=== PATIENT | male | born 1980 ===

== ENCOUNTER 2016-06-04 12:09 | Emergency (ER) | payer SELFPAY ==
[2016-06-04 15:54] VITALS: BP 145/102
--- NOTE | 2016-06-04 16:10 | UC ---
Throat Pain/Nasal Matteo HPI - HPI Summary HPI Summary: patient has had sinus issues for the last week. he has developed ear pain and neck pressure last night. - History of Current Complaint Chief Complaint: UCGeneralIllness Stated Complaint: SORE THROAT, EAR PAIN Time Seen by Provider: 06/04/16 15:45 Hx Obtained From: Patient Onset/Duration: Sudden Onset, Lasting Days Severity: Moderate Pain Intensity: 5 Pain Scale Used: 0-10 Numeric Cough: Productive Associated Signs & Symptoms: Positive: Dysphagia, Sinus Discomfort, Nasal Discharge, Fever - Epiglottits Risk Factors Epiglottis Risk Factors: Negative - Allergies/Home Medications Allergies/Adverse Reactions: Allergies Allergy/AdvReac Type Severity Reaction Status Date / Time Penicillin G AdvReac GI Upset Verified 06/04/16 15:54 PMH/Surg Hx/FS Hx/Imm Hx Previously Healthy: Yes - Surgical History Surgical History: Yes Surgery Procedure, Year, and Place: arm age 13 - Family History Known Family History: Negative: Cardiac Disease, Hypertension - Social History Alcohol Use: None Substance Use Type: None Smoking Status (MU): Never Smoked Tobacco - Immunization History Most Recent Influenza Vaccination: none Review of Systems Constitutional: Chills, Fatigue Skin: Negative Eyes: Negative ENT: Sore Throat, Ear Ache, Nasal Discharge Respiratory: Shortness Of Breath, Cough Cardiovascular: Negative Gastrointestinal: Negative Genitourinary: Negative Motor: Negative Neurovascular: Negative Musculoskeletal: Negative Neurological: Headache Psychological: Negative All Other Systems Reviewed And Are Negative: Yes Physical Exam Triage Information Reviewed: Yes Appearance: Well-Nourished, Ill-Appearing, Pain Distress Vital Signs: Initial Vital Signs Temp 98.8 F 06/04/16 15:50 Pulse 71 06/04/16 15:50 Resp 17 06/04/16 15:50 BP 145/102 06/04/16 15:50 Pulse Ox 100 06/04/16 15:50 Vital Signs Reviewed: Yes Eye Exam: Normal Eyes: Positive: Conjunctiva Inflamed ENT Exam: Other ENT: Positive: Pharyngeal erythema, Nasal congestion, Nasal drainage, TM bulging , TM dull Dental Exam: Normal Neck exam: Normal Neck: Positive: Supple, Nontender, No Lymphadenopathy Respiratory Exam: Normal Respiratory: Positive: Chest non-tender, Lungs clear, No respiratory distress, Decreased breath sounds, Wheezing, Inspiration Cardiovascular Exam: Normal Cardiovascular: Positive: RRR, No Murmur, Pulses Normal Abdominal Exam: Normal Abdomen Description: Positive: Nontender, No Organomegaly, Soft Bowel Sounds: Positive: Present Musculoskeletal Exam: Normal Neurological Exam: Normal Neurological: Positive: Alert, Muscle Tone Normal Psychological Exam: Normal Skin Exam: Normal Throat Pain/Nasal Course/Dx - Course Course Of Treatment: hx obtained, exam performed, medication prescribed. - Differential Dx/Diagnosis Differential Diagnosis/HQI/PQRI: Influenza, Laryngitis, Otitis Media, Pharyngitis, Sinusitis, Tonsillitis, URI Provider Diagnoses: Sinusitis. left ear pain Discharge - Discharge Plan Condition: Stable Disposition: HOME Patient Education Materials: Sinusitis (ED) Forms: *Work Release Referrals: Neelima Presley [Primary Care Provider] - Additional Instructions: Take the medication as prescribed. Increase fluid intake and get plenty of rest.
== END 2016-06-04 16:22 | disposition home or self-care (01) ==
LOC: UCCORT 12:09
DX: H92.02 Otalgia, left ear (principal); J32.9 Chronic sinusitis, unspecified; Z88.0 Allergy status to penicillin
CPT/HCPCS: 99202; G0463

== ENCOUNTER 2016-07-14 13:54 | Emergency (ER) | payer OTHER ==
[2016-07-14 16:19] VITALS: BP 154/101
--- NOTE | 2016-07-14 16:34 | UC ---
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 - History of Current Complaint Chief Complaint: UCBackPain Stated Complaint: BACK PAIN Time Seen by Provider: 07/14/16 16:16 Hx Obtained From: Patient Onset/Duration: Sudden Onset, Lasting Days Timing: Constant Severity Initially: Moderate Pain Intensity: 6 Pain Scale Used: 0-10 Numeric Back Pain: Is Discrete @ - right QL Character: Sharp, Aching, Throbbing Aggravating: Movement Alleviating: Position Associated Signs And Symptoms: Positive: Negative - Risk Factors AAA Risk Factors: Negative TAD Risk Factors: Negative Cauda Equina Risk Factors: Negative Epidural Abscess Risk Factors: Negative - Allergies/Home Medications Allergies/Adverse Reactions: Allergies Allergy/AdvReac Type Severity Reaction Status Date / Time Penicillin G AdvReac GI Upset Verified 06/04/16 15:54 PMH/Surg Hx/FS Hx/Imm Hx Previously Healthy: Yes - Surgical History Surgical History: Yes Surgery Procedure, Year, and Place: left arm, fracture and palte placement age 13 - Family History Known Family History: Negative: Cardiac Disease, Hypertension - Social History Alcohol Use: None Substance Use Type: None Smoking Status (MU): Never Smoked Tobacco - Immunization History Most Recent Influenza Vaccination: none Review of Systems Constitutional: Negative Skin: Negative Eyes: Negative ENT: Negative Respiratory: Negative Cardiovascular: Negative Gastrointestinal: Negative Genitourinary: Negative Motor: Negative Neurovascular: Negative Musculoskeletal: Myalgia Neurological: Negative Psychological: Negative All Other Systems Reviewed And Are Negative: Yes Physical Exam Triage Information Reviewed: Yes Appearance: Well-Appearing, Well-Nourished, Pain Distress Vital Signs: Initial Vital Signs Temp 99.0 F 07/14/16 16:14 Pulse 75 07/14/16 16:14 Resp 16 07/14/16 16:14 BP 154/101 07/14/16 16:14 Pulse Ox 99 07/14/16 16:14 Vital Signs Reviewed: Yes Eye Exam: Normal Eyes: Positive: Conjunctiva Clear ENT Exam: Normal ENT: Positive: Normal ENT inspection, Pharynx normal, TMs normal Dental Exam: Normal Neck exam: Normal Neck: Positive: Supple, Nontender, No Lymphadenopathy Respiratory Exam: Normal Respiratory: Positive: Chest non-tender, Lungs clear, Normal breath sounds Cardiovascular Exam: Normal Cardiovascular: Positive: RRR, No Murmur, Pulses Normal Abdominal Exam: Normal Abdomen Description: Positive: Nontender, No Organomegaly, Soft Bowel Sounds: Positive: Present Musculoskeletal: Positive: No Edema, ROM Limited @ - in spianl rotaion and left lat flx Neurological Exam: Normal Neurological: Positive: Alert, Muscle Tone Normal Psychological Exam: Normal Skin Exam: Normal Back Pain Course/Dx - Course Course Of Treatment: hx obtained, exam performed, AROM assessed and found to be limited, pain is discreet over the right QL. no radiculopahty noted. education on proper stretching given. - Differential Dx/Diagnosis Differential Diagnosis/HQI/PQRI: Arthritis, Herniated Disc, Strain, Sprain Provider Diagnoses: strain of right Quadratum lumborum Discharge - Discharge Plan Condition: Stable Disposition: HOME Patient Education Materials: Low Back Strain (ED), Lower Back Exercises (ED) Additional Instructions: Take the muscle relaxors as needed, continue with aleve or motrin for anti inflammaotry properties, HEat as often as possible and stay mobile. Stretch before and after activity. Stay in the pain free zone. follow up with any worsening symptoms.
== END 2016-07-14 16:48 | disposition home or self-care (01) ==
LOC: UCCORT 13:54
DX: S39.012A Strain of muscle, fascia and tendon of lower back, initial encounter (principal); X58.XXXA Exposure to other specified factors, initial encounter; Y92.9 Unspecified place or not applicable; Z88.0 Allergy status to penicillin
CPT/HCPCS: 99212; G0463

== ENCOUNTER 2017-07-13 17:13 | Emergency (ER) | payer OTHER ==
[2017-07-13 19:10] VITALS: BP 155/97
[2017-07-13] MEDS ORDERED: Benzonatate CAP* 100 MG PO ONE (19:44)
--- NOTE | 2017-07-13 19:52 | UC ---
Respiratory Complaint HPI - HPI Summary HPI Summary: 36 yo male with f/c cough and myalgias x days had tamiflu prescribed today no sob no n/v/d - History of Current Complaint Chief Complaint: UCRespiratory Stated Complaint: FLU SYMPTOMS Time Seen by Provider: 07/13/17 19:13 Hx Obtained From: Patient Onset/Duration: Sudden Onset, Lasting Days Timing: Constant Severity Initially: Moderate Severity Currently: Moderate Pain Intensity: 4 Pain Scale Used: 0-10 Numeric Character: Cough: Nonproductive Aggravating Factors: Nothing Alleviating Factors: Nothing Associated Signs And Symptoms: Positive: Fever, Chills, Nasal Congestion - Allergies/Home Medications Allergies/Adverse Reactions: Allergies Allergy/AdvReac Type Severity Reaction Status Date / Time MS Penicillins [PCN] Allergy GI Upset Verified 07/13/17 19:10 PMH/Surg Hx/FS Hx/Imm Hx Previously Healthy: Yes Respiratory History: Bronchitis - Surgical History Surgical History: Yes Surgery Procedure, Year, and Place: left arm, fracture and palte placement age 13 - Family History Known Family History: Negative: Cardiac Disease, Hypertension - Social History Alcohol Use: None Substance Use Type: None Smoking Status (MU): Never Smoked Tobacco - Immunization History Most Recent Influenza Vaccination: none Review of Systems Constitutional: Fever, Chills, Fatigue Skin: Negative Eyes: Negative ENT: Sore Throat, Nasal Discharge, Sinus Congestion Respiratory: Cough Cardiovascular: Negative Gastrointestinal: Negative Genitourinary: Negative Motor: Negative Neurovascular: Negative Musculoskeletal: Negative Neurological: Negative Psychological: Negative Is Patient Immunocompromised?: No All Other Systems Reviewed And Are Negative: Yes Physical Exam Triage Information Reviewed: Yes Appearance: Well-Appearing, No Pain Distress, Well-Nourished Vital Signs: Initial Vital Signs Temp 99.1 F 07/13/17 19:05 Pulse 81 07/13/17 19:05 Resp 18 07/13/17 19:05 BP 155/97 07/13/17 19:05 Pulse Ox 100 07/13/17 19:05 Eye Exam: Normal Eyes: Positive: Conjunctiva Clear ENT: Positive: Nasal congestion, Nasal drainage, Hoarse voice. Negative: Tonsillar swelling, Tonsillar exudate, Uvula midline Neck: Positive: Supple, Nontender, No Lymphadenopathy Respiratory: Positive: Lungs clear, Normal breath sounds, No respiratory distress Cardiovascular: Positive: RRR, No Murmur Musculoskeletal: Positive: ROM Intact, No Edema Neurological: Positive: Alert Psychological Exam: Normal Skin Exam: Normal UC Diagnostic Evaluation - Laboratory Pertinent Lab Values Are: WNL Except: - influenza a (+) O2 Sat by Pulse Oximetry: 100 - normal/not hypoxic Respiratory Course/Dx - Course Course Of Treatment: influenza A (+) - Differential Dx/Diagnosis Provider Diagnoses: influenza Discharge - Discharge Plan Condition: Stable Disposition: HOME Prescriptions: Benzonatate CAP* [Tessalon CAP*] 100 - 200 mg PO TID PRN #[id number] cap PRN Reason: Cough Patient Education Materials: Influenza (ED) Forms: *Work Release Referrals: Neelima Presley [Primary Care Provider] - If Needed Additional Instructions: rest fluids take tamiflu twice daily for 5 days
== END 2017-07-13 19:57 | disposition home or self-care (01) ==
LOC: UCCORT 17:13
DX: J09.X2 Influenza due to identified novel influenza A virus with other respiratory manifestations (principal)
CPT/HCPCS: 87502; 99212; A9270-GY; G0463

== ENCOUNTER 2017-07-17 11:03 | Emergency (ER) | payer OTHER ==
[2017-07-17 12:50] VITALS: BP 149/98
[2017-07-17] MEDS ORDERED: predniSONE TAB* 20 MG PO ONE (13:23)
[2017-07-17] MEDS ORDERED: Albuterol 2.5 MG/3 ML NEB.SOL* (0.083%) INH ONE (13:23)
--- NOTE | 2017-07-17 13:23 | UC ---
General HPI - HPI Summary HPI Summary: pt states was dx with the flu this past saturday and tx with Tamiflu and Tessalon perles. he returns with an ongoing hoarse voice and new onset of feeling sob with wheezing but no fever. he does admit to some sputum. no hx asthma. - History of Current Complaint Chief Complaint: UCRespiratory Stated Complaint: F/U FLU DX Time Seen by Provider: 07/17/17 13:14 Hx Obtained From: Patient Onset/Duration: Gradual Onset Timing: Constant Pain Intensity: 0 Aggravating: nothing Associated Signs & Symptoms: Positive: Cough, SOB, Wheezing. Negative: Chest Pain, Fever, Hemoptysis - Allergy/Home Medications Allergies/Adverse Reactions: Allergies Allergy/AdvReac Type Severity Reaction Status Date / Time Penicillins Allergy GI Upset Verified 07/17/17 12:40 Home Medications: Home Medications Benzonatate CAP* [Tessalon 100 MG CAP*] 200 mg PO TID PRN 07/17/17 [History Confirmed 07/17/17] Ondansetron [Zofran Odt] 4 mg PO 07/17/17 [History] Oseltamivir CAP* [Tamiflu CAP*] 75 mg PO BID 07/17/17 [History Confirmed ] PMH/Surg Hx/FS Hx/Imm Hx - Additional Past Medical History Additional PMH: fx IDALMIS as kid GI/ History: Gastroesophageal Reflux - Surgical History Surgical History: Yes Surgery Procedure, Year, and Place: left arm, fracture and palte placement age 13 - Family History Known Family History: Positive: None Negative: Cardiac Disease, Hypertension - Social History Occupation: Employed Full-time Lives: Alone Alcohol Use: None Substance Use Type: None Smoking Status (MU): Former Smoker When Did the Patient Quit Smoking/Using Tobacco: 2007 Household Exposure Type: Cigarettes - Immunization History Most Recent Influenza Vaccination: none Review of Systems Constitutional: Negative Skin: Negative Eyes: Negative ENT: Other - hoarse voice Respiratory: Shortness Of Breath, Cough Cardiovascular: Negative Gastrointestinal: Negative Genitourinary: Negative Motor: Negative Neurovascular: Negative Musculoskeletal: Negative Neurological: Negative Is Patient Immunocompromised?: No All Other Systems Reviewed And Are Negative: Yes Physical Exam Triage Information Reviewed: Yes Appearance: Well-Appearing Vital Signs: Initial Vital Signs Temp 98 F 07/17/17 12:43 Pulse 72 02/14/18 12:43 Resp 24 07/17/17 12:43 BP 149/98 07/17/17 12:43 Pulse Ox 100 07/17/17 12:43 Eye Exam: Normal ENT: Positive: Pharynx normal, TMs normal, Hoarse voice, Uvula midline. Negative: Nasal drainage Neck: Positive: Supple, Nontender, No Lymphadenopathy Respiratory: Positive: Lungs clear, No respiratory distress, No accessory muscle use, Decreased breath sounds, Other: - cough is congested Cardiovascular: Positive: RRR, No Murmur Abdomen Description: Positive: Nontender, No Organomegaly, Soft Bowel Sounds: Positive: Present Neurological: Positive: Alert Psychological Exam: Normal Skin Exam: Normal Diagnostics - Laboratory Diagnostic Studies Completed/Ordered: cxr=nad Course/Dx - Course Course Of Treatment: Pt has improved aeration, no wheezing and less cough post tx. he notes easier to breathe. cxr=unremarkable. will tx for secondary pulmonary symptoms witH steroid and ventolin from his flu. no antibiotic indicated. - Differential Dx - Multi-Symptom Provider Diagnoses: + influnza by hx, laryngitis, bronchospasm Discharge - Discharge Plan Condition: Improved Disposition: HOME Prescriptions: Albuterol HFA INHALER* [Ventolin HFA Inhaler*] 2 puff INH Q6H #1 mdi predniSONE TAB* [Deltasone TAB*] 40 mg PO DAILY #6 tab Forms: *Work Release Referrals: Neelima Presley [Primary Care Provider] - 3 Days
--- NOTE | 2017-07-17 13:56 | RAD ---
Indication: Shortness of breath, influenza. 2 views of the chest including dual energy PA views demonstrates no mediastinal shift. Heart is of normal size and configuration. Lung weber are clear. IMPRESSION: No active cardiopulmonary disease is noted.
== END 2017-07-17 14:35 | disposition home or self-care (01) ==
LOC: UCCORT 11:03
DX: Z87.891 Personal history of nicotine dependence (principal); Z51.89 Encounter for other specified aftercare; J11.1 Influenza due to unidentified influenza virus with other respiratory manifestations; J04.0 Acute laryngitis; J98.01 Acute bronchospasm
CPT/HCPCS: 71046; 99212; G0463; J7512